=== PATIENT | male | born 1975 | race Two or more races ===

== ENCOUNTER 2023-11-16 23:14 | Emergency (ER) | payer SELFPAY ==
[~2023-11-16] VITALS: Ht 162.6 cm; Wt 78.4 kg
[2023-11-16 23:55] LABS: Basophils # (auto) 0.1 10 ^3/uL (0-0.2); Basophils % (auto) 0.6 % (0.0-2.0); Eosinophils # (auto) 0 10 ^3/uL (0-0.8); Hematocrit 49.3 % (41.0-53.0); Hemoglobin 16.3 g/dL (13.5-17.5); Lymphocytes # (auto) 0.8 10 ^3/uL (0.4-5.4); Mean Corpuscular Hemoglobin 29.2 pg (28.0-32.0); Mean Corpuscular Hgb Conc. 33.1 g/dL (32.0-36.0); Mean Corpuscular Volume 88.2 fL (80.0-100.0); Monocytes # (auto) 0.6 10 ^3/uL (0-1.3); Neutrophils # (auto) 13.7 10 ^3/uL (1.6-8.6); Neutrophils % (auto) 90.4 % (37.0-80.0); Nucleated Red Blood Cells % 0.1 %; Red Blood Cells 5.59 10^6/uL (4.5-5.90); Red Cell Distribution Width 12.9 % (11.8-14.3); White Blood Cell 15.1 10^3/uL (4.4-10.8)
[2023-11-16 23:59] LABS: Urine Bacteria NONE SEEN /hpf (None Seen); Urine Blood Negative /uL (Negative); Urine Clarity Clear (Clear); Urine Color Yellow (Yellow); Urine Mucus FEW (None Seen); Urine Protein, UAD 1+ (Negative); Urine Specific Gravity 1.028 (1.001-1.035); Urine Urobilinogen Normal (Negative); Urine WBC 2 /hpf (0 - 3)
[2023-11-17 00:13] LABS: Alanine Aminotransferase 32 U/L (7-40); Albumin 4.6 g/dL (3.2-4.8); Alkaline Phosphatase 92 U/L (46-116); Anion Gap 6 (5-15); Aspartate Aminotransferase 33 U/L (13-40); BUN/Creatinine Ratio 7.4 (10.0-20.0); Blood Urea Nitrogen 11 mg/dL (9-23); Calcium 9.3 mg/dL (8.7-10.4); Carbon Dioxide 27 mmol/L (20-30); Chloride 105 mmol/L (98-107); Glucose 124 mg/dL (74-106); Potassium 3.6 mmol/L (3.5-5.1); Sodium 138 mmol/L (136-145)
[2023-11-17 00:14] LABS: Bilirubin, Total 0.8 mg/dL (0.2-1.0); Total Protein 7.9 g/dL (5.7-8.2)
[2023-11-17] MEDS: KETOROLAC TROMETH 60MG/2ML VIAL IM ONE (03:45)
[2023-11-17] MEDS ORDERED: ACET-1304 PO (05:15)
[2023-11-17] MEDS ORDERED: IBUP-1456 PO (05:15)
[2023-11-17] MEDS ORDERED: TAMS-35 PO (05:15)
[2023-11-17 05:45] VITALS: BP 131/87; PULSE 77; RESP 16; TEMP 97.6; O2SAT 95
[2023-11-17] MEDS: TAMSULOSIN HYDROCHLORIDE 0.4 MG CAP PO ONE (05:52)
== END 2023-11-17 05:09 | disposition home or self-care (01) ==
LOC: ER 23:14
DX: N20.1 Calculus of ureter (principal); I10 Essential (primary) hypertension; E78.5 Hyperlipidemia, unspecified; Z79.899 Other long term (current) drug therapy
CPT/HCPCS: 36415; 74176; 80053; 81001; 84484; 85025; 96372; 99285; J1885